=== PATIENT | male | born 1945 | race Caucasian/White ===

== ENCOUNTER 2023-06-21 10:28 | Outpatient (CLI) | payer MEDICARE, SELFPAY ==
--- OUTSIDE RECORDS SUMMARY | 2023-06-21 10:33 | XMS_ITS | Continuity of Care Document ---
Author Name Unknown Organization [facility] Address [address] [place] [id number] Phone Care Team Providers Care Correctional Supervisor Lieutenant Name Role Phone Preethi Boyce MD Unavailable Unavailable Allergies, Adverse Reactions, Alerts Substance Reaction Status Criticality No Known Allergies Active No Inform ation Medications Medication Instructions Dosage Effective Dates (start - stop) Status Comments omeprazole 20 mg capsule,delayed release TAKE ONE CAPSULE BY MOUTH EVERY MORNING 30 MIN BEFORE MEALS - Active Vitamin B-12 1,000 mcg tablet - Active CENTRUM SILVER (unknown strength) Not Available - Active aspirin 81 mg tablet,delayed release take 1 tablet by oral route every day 81 MG - Active alprazolam 0.5 mg tablet take 1 tablet by oral route 3 times every day 0.5 MG - Active simvastatin 40 mg tablet take 1 tablet by oral route every day in the evening 40 MG - Active Tirosint 25 mcg capsule take 1 capsule by oral route every day 25 MCG - Active OMEPRAZOLE DR 20 MG CAPSULE TAKE ONE CAPSULE BY MOUTH EVERY MORNING 30 MIN BEFORE MEALS - No Longer Active Problems Condition Type Effective Dates (start - stop) Clini jeana Status Comments No Known Problems Procedures Procedure Date OFFICE/OUTPATIENT VISIT, EST OFFICE/OUTPATIENT VISIT, EST OFFICE/OUTPATIENT VISIT, EST ANESTH, UPPER GI VISUALIZE TISSUE EXAM BY PATHOLOGIST UPPER GI ENDOSCOPY, BIOPSY OFFICE/OUTPATIENT VISIT, EST ANESTH, LOW INTESTINE SCOPE DIAGNOSTIC COLONOSCOPY OFFICE/OUTPATIENT VISIT, EST ANESTH, LOW INTESTINE SCOPE LESION REMOVAL COLONOSCOPY TISSUE EXAM BY PATHOLOGIST OFFICE/OUTPATIENT VISIT, [facility] Advance Directives Directive Yes / No Effective Date File Name No Information Encounters Encounter Description Practice Location Reason(s) For Visit Diagnoses Date Provider Providers Copied on Encounter OFFICE/OUTPA TIENT VISIT, [facility], [address], [place], [place], [address] [place] [address], tel:[phone] Main Office GERD (chief complaint)H /o colorectal polyp(s) (chief complaint) Gastro-esophage al reflux disease without esophagitisHoar senessPersonal history of colonic polypsCough 9 Albibi Riyad. [address] [place], [place], [facility], . tel:[phone] Referring Provider: Emy Lopez, [address], [place], [place], [facility]. tel:[phone] [facility], [address], [address] [place] [address], tel:[phone] Main Office No Information 9 Albibi Riyad. [address], [facility], . tel:[phone] OFFICE/OUTPA TIENT VISIT, [facility], [address], [place], [address] [place] [address], tel:[phone] Main Office GERD (chief complaint)H /o colorectal polyp(s) (chief complaint) Gastro-esophage al reflux disease without esophagitisPers onal history of colonic polyps 8 Albibi Riyad. [address], [facility], . tel:[phone] Referring Provider: Emy Lopez, [address], [place], [place], [facility]. tel:[phone] OFFICE/OUTPA TIENT VISIT, [facility], [address], [address] [place] [address], tel:[phone] Main Office elevated liver chemistry (chief complaint)H /o colorectal polyp(s) (chief complaint) Other specified abnormal findings of blood chemistryPerson al history of colonic polyps Albpatti Oro. [address] [place], [place], [facility], . tel:[phone] Referring Provider: Emy Lopez, [address], [place], [facility]. tel:[phone] [facility], [address], [address] [place] [address], tel:[phone] [facility] No Information No Information Referring Provider: Preethi Boyce, [address], [facility]. tel:[phone] [facility], [address] [place], [place], [address] [place] [address], tel:[phone] Main Office No Information Carli Oro. [address], [facility], . tel:[phone] Referring Provider: Preethi Boyce, [address] [place], [place], [facility]. tel:[phone] [facility], [address], [address] [place] [address], tel:[phone] [facility] No Information Carli Oro. [address] [place], [facility], . tel:[phone] Referring Provider: Preethi Boyce, [address], [facility]. tel:[phone] OFFICE/OUTPA TIENT VISIT, EST [facility], [address], [id number], tel:[phone] Main Office elevated liver chemistry (chief complaint)G ERD (chief complaint) Gastro-esophage al reflux disease without esophagitisPers onal history of colonic polypsOther specified abnormal findings of blood chemistryHoarse ness Carli Oro. [address], [place], [address], [place]. tel:[phone] Referring Provider: Emy Lopez, [address], [place], [address]. tel:[phone] [facility], [address], [place], [place], [id number], [place] tel:[phone] [facility] No Information 0 6 No Information Referring Provider: Emy Lopez, [address], [place], [address]. tel:[phone] [facility], [address], [place], [place], [id number], [place] tel:[phone] [facility] No Information 0 6 Albibi Riyad. [address], [place], [address], [place]. tel:[phone] Referring Provider: Emy Lopez, [address], [address]. tel:[phone] OFFICE/OUTPA TIENT VISIT, [facility], [address], [place], [place], [id number], [place] tel:[phone] Main Office H/o colorectal polyp(s) (chief complaint) Personal history of colonic polyps Fe-2 6 Albibi Riyad. [address], [place], [address], [place]. tel:[phone] Referring Provider: Emy Lopez, [address] [place], [address]. tel:[phone] [facility], [address], [place], [place], [id number], [place] tel:[phone] [facility] No Information Feb-0 2- 4 No Information Referring Provider: Emy Lopez, [address], [place], [address]. tel:[phone] [facility], [address], [id number], [place] tel:[phone] [facility] No Information Feb-0 2- 4 Carli Cabad. [address], [facility], . tel:[phone] Referring Provider: Emy Lopez, [address] [place], [facility]. tel:[phone] [facility], [address], [address] [place] [address], tel:[phone] Main Office No Information 4 Carli Oro. [address] [place], [place], [facility], . tel:[phone] Referring Provider: Emy Lopez, [address], [place], [facility]. tel:[phone] OFFICE/OUTPA TIENT VISIT, [facility], [address] [place], [place], [address] [place] [address], tel:[phone] Main Office No Information 3 Carli Oro. [address] [place], [place], [facility], . tel:[phone] Referring Provider: Emy Lopez, [address], [place], [facility]. tel:[phone] Family History Family Member Type Diagnosis Age At Onset No Information Payers Payer name Insurance type Covered green party ID Authorbradleya tikarla(s) Medicare [id number] AARP Supplement Plans [id number] Social History Type Description Quantity Date Captured Comments Alcohol Use Details Caffeine Use Details Unknown Tobacco Use Status Never smoked tobacco 2018 Smoking Status Never smoker Sex Male Vital Signs Date / Time: Height Weight BMI Pulse Rate Blood Pressure Temperature Respiratory Rate Body Surface Area Head Circumference Head Circ. Percentile Wt./Zafar. Percentile BMI percentile Pulse Ox Inhaled Ox 4:14 PM 73.00 in 107.501 kg (237.00 lbs) 31.2 7 kg/m eter (2) 52 /min 151/83 mm[Hg] Chief Complaint And Reason For Visit From encounter dated '07/13/2019 15:50'. GERD (chief complaint). Description: The onset of the heartburn was gradual. The severity is mild. The patient reports heartburn. Context: treatment with PPIs. The symptoms are aggravated by spicy foods. There are no associated symptoms. H/o colorectal polyp(s) (chief complaint). Description: The patient presents with H/o colorectal polyp(s) that began gradually. The problem occurs cyclical. He does not complain of any pain. Denies aggravating factors. Denies relieving factors. Additional information: Colon 2017, no new polyps, [id number]. EGD showed ring and esophagitis. Reason For Referral Reason For Referral No Information History Of Present Illness Encounter Date Complaint History Of Prese nt Illness GERD The onset of the heartburn was gradual. The severity is mild. The patient reports heartburn. Context: treatment with PPIs. The symptoms are aggravated by spicy foods. There are no associated symptoms. H/o colorectal polyp(s) The berlin ent presents with H/o colorectal polyp(s) that began gradually. The problem occurs cyclical. He does not complain of any pain. Denies aggravating factors. Denies relieving factors. Additional information: Colon 2017, no new polyps, due 2020. EGD showed ring and esophagitis. H/o colorectal polyp(s) The berlin ent presents with H/o colorectal polyp(s). Additional information: Colon of 2015 with no recurrence of polyps. Due for recheck 2020 ( 5 year). Denies any lower GI sx.. GERD The onset of the heartburn was gradual. The severity is mild. The problem is improving. The patient reports heartburn. It occurs randomly. Denies aggravating factors. Denies relieving factors. There are no associated symptoms. Additional information: US abdomen with uncomplicated gallstones. Pt denies any upper GI sx. EGD done 02/12/17 with gastritis. Bx neg. Using Omeprazole 20mg elevated liver chemi stry (comments) US abdomen with uncomplicated gallstones. Pt denies any upper GI sx. EGD done 02/12/17 with gastritis. Bx neg. Using Omeprazole prn. Full liver work up neg. elevated liver chemistry Onset: 6 months ago. Severity level is mild. Indications for testing include routine lab studies. Additional information: Had mild elevation of transaminases and AP. Statins stopped. No ETOH use. Most recent blood work from January with normalization of liver enzymes. Statins have been restarted.. H/o colorectal polyp(s) The berlin ent presents with H/o colorectal polyp(s) that began gradually. The problem occurs cyclical. He reports that the symptoms are unchanged. Denies aggravating factors. Denies relieving factors. Additional information: Colon of 2015 with no recurrence of polyps. Due for recheck 2020 ( 5 year). Denies any lower GI sx. elevated liver chemistry Indicat ions for testing include routine lab studies. There are no associated symptoms. GERD The onset of the heartburn was gradual. The severity is mild. The problem is resolved. It occurs randomly. The symptoms are aggravated by large meals and spicy foods. Associated symptoms include hoarseness. elevated liver chemi stry (comments) Additonal info: Denies any hx of EtOH abuse. No new medications. PCP has stopped statins therapy at this time. Recent AST 62, ALT 127, alk phos 154, t. bili 0.60. CBC WNL. Denies any abdominal pain, N/V. GERD (comments) Additional info: Rare reflux w/ chronic hoarseness. No prior EGD in the past. Last colon 01/2016 w/ diverticulosis and IH. Hx of TVA in the past. H/o colorectal polyp(s) The berlin ent presents with H/o colorectal polyp(s) that began 2 years ago. He/she reports having 1 stools per day. The stool quality is formed. He does not complain of any pain. Additional information: Had 2 TVA removed from cecum 11/2013. Functional Status Date Functional Assessmen t No Information Instructions Date Instruction Additional Infor mation No Information Assessments Type Assessment Date assessment Gastro-esophageal reflux disease without esophagitis assessment Hoarseness assessment Personal history of colonic poly ps assessment Cough Mental Status Date Cognitive Assessment Orientation - [place] ed to time, place, person, situation. Patient Care Teams Name Effective Dates (start - stop) Status Members No Information
--- NOTE | 2023-06-21 10:45 | CRLHL7_ITS ---
For Patients: As a result of the Century Cures Act, medical imaging exams and procedure reports are released immediately into your electronic medical record. You may view this report before your referring provider. If you have questions, please contact your health care provider. CLINICAL HISTORY: CKD STAGE 3 COMPARISON: none TECHNIQUE: Bonilla scale and color Doppler images were acquired of the kidneys. FINDINGS: Sonographic images reveal a symmetric appearance of the kidneys. There is no evidence of hydronephrosis, mass or calculus. The right kidney measures 11.4cm in length and the left kidney measures 11.9cm in length. The renal cortex appears of normal thickness. Renal cortex measures 1.9 cm on the right and 1.9 cm on the left. Normal color Doppler images of both kidneys. IMPRESSION: Normal renal ultrasound. Dictated by Donavan Delgado MD @ 06/21/2023 11:10:18 AM (Electronically Signed)
== END 2023-06-21 10:29 | disposition home or self-care (01) ==
LOC: US 10:29
PROVIDERS: PCP Family Medicine; Visit Provider Internal Medicine Nephrology
DX: N18.30 Chronic kidney disease, stage 3 unspecified (principal); I10 Essential (primary) hypertension
CPT/HCPCS: 76775; 80069; 82043; 82310; 82570; 82728; 83520; 83540; 83550; 83970; 84156; 84165

== ENCOUNTER 2023-06-21 14:04 | Outpatient (CLI) | payer MEDICARE, SELFPAY | END 2023-06-21 14:05 | disposition home or self-care (01) | LOC: NFLDREF 06-23 11:55 | PROVIDERS: PCP Family Medicine; Referring Provider Family Medicine; Visit Provider Internal Medicine Nephrology | DX: E03.9 Hypothyroidism, unspecified (principal); E78.00 Pure hypercholesterolemia, unspecified; I10 Essential (primary) hypertension; N18.30 Chronic kidney disease, stage 3 unspecified | CPT/HCPCS: 80069; 82043; 82310; 82570; 82728; 83520; 83540; 83550; 83970; 84156; 84165 ==

== ENCOUNTER 2023-12-10 08:25 | Outpatient (CLI) | payer MEDICARE, SELFPAY ==
--- OUTSIDE RECORDS SUMMARY | 2023-12-16 15:49 | XMS_ITS | Clinical Summary ---
Author Name Unknown Organization [facility] Address [place], [place] [address] Care Team Providers Care Electric Meter Tester Name Role Phone Pcp, No Primary Care Provider Unavailabl e Allergies No known active allergies Medications Medication Sig Dispensed Refills Start Date End Date Status ALPRAZolam (XANAX) 1 mg tablet Take 1 mg by mouth 2 times daily. 2 10/27/2016 Active simvastatin (ZOCOR) 40 mg tablet Take 40 mg by mouth once daily. 7 10/24/2016 Active levothyroxine (SYNTHROID) 25 mcg tablet Take 25 mcg by mouth once daily. 12 10/24/2016 Active multivitamin (MVI) tablet Take 1 tablet by mouth once daily. 0 11/09/2016 Active vit B complex-folic acid 0.4 mg tab tablet Take 1 tablet by mouth once daily. 0 11/09/2016 Active aspirin (ECOTRIN) 81 mg enteric coated tablet Take 1 tablet by mouth once daily with a meal. 0 11/09/2016 Active omeprazole (PRILOSEC) 20 mg Delayed-Release capsule TAKE 1 CAPSULE BY ORAL ROUTE EVERY DAY BEFORE A MEAL 8 12/20/2017 Active tiZANidine (ZANAFLEX) 4 mg tabletIndications:Acu te bilateral low back pain without sciatica Take 1 tablet by mouth every 6 hours if needed for Muscle Spasm. 10 tablet 0 02/24/2018 Active Active Problems No known active problems Immunizations Name Administration Dates Next Due Influenza, High-dose Inactivated 09/12/2016 Influenza, Inactivated IIV3 (Age 65+ Years) Preserv Free 12/13/2017 Tdap 01/13/2018 Social History Tobacco Use Types Packs/Day Years Used Date Smoking Tobacco: Never Smokeless Tobacco: Never Tobacco Cessation:Counseling Given: Yes Alcohol Use Standard Drinks/Week Comments Yes 0 (1 standard drink = 0.6 oz pur e alcohol) very little red wine PHQ-2 Answer Date Recorded PHQ-2 Score 0 01/31/2019 Sex and Gender Information Value Date Recorded Sex Assigned at Not on file Gender Identity Not on file Sexual Orientation Not on file Obstetrics History Last Filed Vital Signs Vital Sign Reading Time Taken Comments Blood Pressure 152/84 03/04/2018 11:13 AM CDT Pulse 69 03/04/2018 11:13 AM CDT Temperature 36.8 ??C (98.2 ??F) 03/04/2018 1 1:11 AM CDT Respiratory Rate - - Oxygen Saturation 100% 03/04/2018 11: 13 AM CDT Inhaled Oxygen Concentration - - Weight 98.3 kg (216 lb 12.8 oz) 018 11:11 AM CDT Height 181 cm (5' 11.25) 03/02/2018 4:00 PM CDT Body Mass Index 30.03 03/02/2018 4:00 PM CDT Plan of Treatment Health Maintenance Due Date Last Done Comments COVID-19 vaccine series (#1) 1945 Hepatitis C screening for age 18-79 1963 Zoster (shingles) series for age 50+ (1 of 2) 1995 Pneumococcal series for age 65+ (1 of 1 - PCV) 2010 Depression screening for age 12+ 02/03/2019 02/04/20 18 BMI (ht and wt on same day) for age 18+ 03/02/2019 0 03/02/2018, 11/09/2016 Influenza for age 65+ 07/30/2023 12/13/2017, 016 Tetanus booster 01/13/2028 01/13/2018 Tdap Completed 01/13/2018 Care Teams Electric Meter Tester Relationship Specialty Start Date End Date Pcp, No . PCP - General 03/04/18
--- OUTSIDE RECORDS SUMMARY | 2023-12-16 15:49 | XMS_ITS | Continuity of Care Document ---
Author Name Unknown Organization [facility] Address [address] [place] [id number] Phone Care Team Providers Care Engine Wiper Name Role Phone Preethi Boyce MD Unavailable Unavailable Allergies, Adverse Reactions, Alerts Substance Reaction Status Criticality No Known Allergies Active No Inform ation Medications Medication Instructions Dosage Effective Dates (start - stop) Status Comments omeprazole 20 mg capsule,delayed release TAKE ONE CAPSULE BY MOUTH EVERY MORNING 30 MIN BEFORE MEALS - Active Tirosint 25 mcg capsule take 1 capsule by oral route every day 25 MCG - Active simvastatin 40 mg tablet take 1 tablet by oral route every day in the evening 40 MG - Active alprazolam 0.5 mg tablet take 1 tablet by oral route 3 times every day 0.5 MG - Active aspirin 81 mg tablet,delayed release take 1 tablet by oral route every day 81 MG - Active CENTRUM SILVER (unknown strength) Not Available - Active Vitamin B-12 1,000 mcg tablet - Active OMEPRAZOLE DR 20 MG CAPSULE [...] COLONOSCOPY TISSUE EXAM BY PATHOLOGIST OFFICE/OUTPATIENT VISIT, [facility] Advance Directives Directive Yes / No Effective Date File Name No Information Encounters Encounter Description Practice Location Reason(s) For Visit Diagnoses Date Provider Providers Copied on Encounter OFFICE/OUTPA TIENT VISIT, [facility], [address], [place], [place], [address] [place] [address], tel:[phone] Main Office GERD (chief complaint)H /o colorectal polyp(s) (chief complaint) Gastro-esophage al reflux disease without esophagitisHoar senessPersonal history of colonic polypsCough 9 Albibi Riyad. [address] [place], [place], [facility], . tel:[phone] Referring Provider: Emy Lopez, [address] [place], [place], [facility]. tel:[phone] [facility], [address] [place], [address] [place] [address], tel:[phone] Main Office No Information 9 Albibi Riyad. [address], [facility], . tel:[phone] OFFICE/OUTPA TIENT VISIT, [facility], [address], [place], [address] [place] [address], tel:[phone] Main Office GERD (chief complaint)H /o colorectal polyp(s) (chief complaint) Gastro-esophage al reflux disease without esophagitisPers onal history of colonic polyps 8 Albibi Riyad. [address], [facility], . tel:[phone] Referring Provider: Emy Lopez, [address] [place], [place], [facility]. tel:[phone] OFFICE/OUTPA TIENT VISIT, [facility], [address], [address] [place] [address], tel:[phone] Main Office elevated liver chemistry (chief complaint)H /o colorectal polyp(s) (chief complaint) Other specified abnormal findings of blood chemistryPerson al history of colonic polyps Albpatti Oro. [address] [place], [facility], . tel:[phone] Referring Provider: Emy Lopez, [address], [place], [facility]. tel:[phone] [facility], [address], [address] [place] [address], tel:[phone] [facility] No Information No Information Referring Provider: Preethi Boyce, [address], [facility]. tel:[phone] [facility], [address] [place], [place], [address] [place] [address], tel:[phone] Main Office No Information Carli Oro. [address], [facility], . tel:[phone] Referring Provider: Preethi Boyce, [address] [place], [facility]. tel:[phone] [facility], [address], [address] [place] [address], tel:[phone] [facility] No Information Carli Oro. [address] [place], [facility], . tel:[phone] Referring Provider: Preethi Boyce, [address], [facility]. tel:[phone] OFFICE/OUTPA TIENT VISIT, EST [facility], [address], [id number], tel:[phone] Main Office elevated liver chemistry (chief complaint)G ERD (chief complaint) Gastro-esophage al reflux disease without esophagitisPers onal history of colonic polypsOther specified abnormal findings of blood chemistryHoarse ness Carli Oro. [address], [place], [address], [place]. tel:[phone] Referring Provider: Emy Lopez, [address], [place], [address]. tel:[phone] [facility], [address], [place], [place], [id number], [place] tel:[phone] [facility] No Information 0 6 No Information Referring Provider: Emy Lopez, [address] [place], [place], [address]. tel:[phone] [facility], [address], [place], [place], [id number], [place] tel:[phone] [facility] No Information 0 6 Albibi Riyad. [address], [place], [address], [place]. tel:[phone] Referring Provider: Emy Lopez, [address], [address]. tel:[phone] OFFICE/OUTPA TIENT VISIT, [facility], [address], [place], [place], [id number], [place] tel:[phone] Main Office H/o colorectal polyp(s) (chief complaint) Personal history of colonic polyps Fe-2 6 Albibi Riyad. [address], [place], [address], [place]. tel:[phone] Referring Provider: Emy Lopez, [address] [place], [address]. tel:[phone] [facility], [address], [place], [place], [id number], [place] tel:[phone] [facility] No Information Feb-0 2- 4 No Information Referring Provider: Emy Lopez, [address] [place], [place], [address]. tel:[phone] [facility], [address], [id number], [place] tel:[phone] [facility] No Information Feb-0 2- 4 Carli Cabad. [address], [facility], . tel:[phone] Referring Provider: Emy Lopez, [address] [place], [facility]. tel:[phone] [facility], [address], [address] [place] [address], tel:[phone] Main Office No Information 4 Carli Oro. [address] [place], [facility], . tel:[phone] Referring Provider: Emy Lopez, [address] [place], [place], [facility]. tel:[phone] OFFICE/OUTPA TIENT VISIT, [facility], [address] [place], [place], [address] [place] [address], tel:[phone] Main Office No Information 3 Carli Oro. [address] [place], [facility], . tel:[phone] Referring Provider: Emy Lopez, [address], [place], [facility]. tel:[phone] Family History Family Member Type Diagnosis Age At Onset No Information Payers Payer name Insurance type Covered republican ID Authorbradleya tikarla(s) Medicare [id number] AARP Supplement Plans [id number] Social History Type Description Quantity Date Captured [...] Additional information: Colon 2017, no new polyps, [id number]. EGD showed ring and esophagitis. Reason For [...] Mental Status Date Cognitive Assessment Orientation - [place] ed to time, place, person, situation. Patient Care Teams Name Effective Dates (start - stop) Status Members No Information
== END 2023-12-10 08:26 | disposition home or self-care (01) ==
LOC: NFLDREF 12-16 15:43
PROVIDERS: PCP Family Medicine; Referring Provider Family Medicine; Visit Provider Internal Medicine Nephrology
DX: I10 Essential (primary) hypertension (principal); N18.30 Chronic kidney disease, stage 3 unspecified
CPT/HCPCS: 80069; 82043; 82570

== ENCOUNTER 2024-04-17 06:17 | Outpatient (CLI) | payer MEDICARE, SELFPAY ==
--- OUTSIDE RECORDS SUMMARY | 2024-04-17 06:19 | XMS_ITS | Continuity of Care Document ---
Author Name Unknown Organization [facility] Address [address] [place] [phone] Phone Care Team Providers Care Antique Jewelry Repairer Name Role Phone Preethi Boyce MD Unavailable [...] COLONOSCOPY TISSUE EXAM BY PATHOLOGIST OFFICE/OUTPATIENT VISIT, [facility] Advance Directives Directive Yes / No Effective Date File Name No Information Encounters Encounter Description Practice Location Reason(s) For Visit Diagnoses Date Provider Providers Copied on Encounter OFFICE/OUTPA TIENT VISIT, [facility], [address], [place], [place], [address] [place] [address], tel:[phone] Main Office GERD (chief complaint)H /o colorectal polyp(s) (chief complaint) Gastro-esophage al reflux disease without esophagitisHoar senessPersonal history of colonic polypsCough 9 Albibi Riyad. [address] [place], [place], [facility], . tel:[phone] Referring Provider: Emy Lopez, [address] [place], [place], [facility]. tel:[phone] [facility], [address], [address] [place] [address], tel:[phone] Main Office No Information 9 Albibi Riyad. [address], [facility], . tel:[phone] OFFICE/OUTPA TIENT VISIT, [facility], [address], [place], [address] [place] [address], tel:[phone] Main Office GERD (chief complaint)H /o colorectal polyp(s) (chief complaint) Gastro-esophage al reflux disease without esophagitisPers onal history of colonic polyps 8 Albibi Riyad. [address], [facility], . tel:[phone] Referring Provider: Emy Lopez, [address] [place], [place], [facility]. tel:[phone] OFFICE/OUTPA TIENT VISIT, [facility], [address], [address] [place] [address], tel:[phone] Main Office elevated liver chemistry (chief complaint)H /o colorectal polyp(s) (chief complaint) Other specified abnormal findings of blood chemistryPerson al history of colonic polyps Albpatti Oro. [address] [place], [facility], . tel:[phone] Referring Provider: Emy Lopez, [address], [place], [facility]. tel:[phone] [facility], [address], [address] [place] [address], tel:[phone] [facility] No Information No Information Referring Provider: Preethi Boyce, [address], [facility]. tel:[phone] [facility], [address] [place], [place], [address] [place] [address], tel:[phone] Main Office No Information Carli Oro. [address], [facility], . tel:[phone] Referring Provider: Preethi Boyce, [address] [place], [facility]. tel:[phone] [facility], [address], [address] [place] [address], tel:[phone] [facility] No Information Carli Oro. [address] [place], [facility], . tel:[phone] Referring Provider: Preethi Boyce, [address], [facility]. tel:[phone] OFFICE/OUTPA TIENT VISIT, EST [facility], [address], [id number], tel:[phone] Main Office elevated liver chemistry (chief complaint)G ERD (chief complaint) Gastro-esophage al reflux disease without esophagitisPers onal history of colonic polypsOther specified abnormal findings of blood chemistryHoarse ness Carli Oro. [address], [place], [address], [place]. tel:[phone] Referring Provider: Emy Lopez, [address], [place], [address]. tel:[phone] [facility], [address], [place], [place], [id number], [place] tel:[phone] [facility] No Information 0 6 No Information Referring Provider: Emy Lopez, [address] [place], [place], [address]. tel:[phone] [facility], [address], [place], [place], [id number], [place] tel:[phone] [facility] No Information 0 6 Albibi Riyad. [address], [place], [address], [place]. tel:[phone] Referring Provider: Emy Lopez, [address], [address]. tel:[phone] OFFICE/OUTPA TIENT VISIT, [facility], [address], [place], [place], [id number], [place] tel:[phone] Main Office H/o colorectal polyp(s) (chief complaint) Personal history of colonic polyps Fe-2 6 Albibi Riyad. [address], [place], [address], [place]. tel:[phone] Referring Provider: Emy Lopez, [address] [place], [address]. tel:[phone] [facility], [address], [place], [place], [id number], [place] tel:[phone] [facility] No Information Feb-0 2- 4 No Information Referring Provider: Emy Lopez, [address] [place], [place], [address]. tel:[phone] [facility], [address], [id number], [place] tel:[phone] [facility] No Information Feb-0 2- 4 Carli Cabad. [address], [facility], . tel:[phone] Referring Provider: Emy Lopez, [address] [place], [place], [facility]. tel:[phone] [facility], [address], [address] [place] [address], tel:[phone] Main Office No Information 4 Carli Oro. [address] [place], [place], [facility], . tel:[phone] Referring Provider: Emy Lopez, [address] [place], [place], [facility]. tel:[phone] OFFICE/OUTPA TIENT VISIT, [facility], [address] [place], [place], [address] [place] [address], tel:[phone] Main Office No Information 3 Carli Oro. [address] [place], [facility], . tel:[phone] Referring Provider: Emy Lopez, [address] [place], [facility]. tel:[phone] Family History Family Member Type Diagnosis Age At Onset No Information Payers Payer name Insurance type Covered alliance party ID Authorbradleya tikarla(s) Medicare [id number] AARP Supplement Plans [id number] Social History Type Description Quantity Date Captured [...] Additional information: Colon 2017, no new polyps, [id number]. EGD showed ring and esophagitis. Reason For [...] Mental Status Date Cognitive Assessment Orientation - [place] ed to time, place, person, situation. Patient Care Teams Name Effective Dates (start - stop) Status Members No Information
--- OUTSIDE RECORDS SUMMARY | 2024-04-17 06:19 | XMS_ITS | Clinical Summary ---
Author Name Unknown Organization [employer] [facility] Address [place], [place] [address] Care Team Providers Care Brake Engineer Name Role Phone Pcp, No Primary Care [...] if needed for Muscle Spasm. 10 tablet 02/24/2018 Active Active Problems No known active [...] Health Maintenance Due Date Last Done Comments Hepatitis C screening for age 18-79 1963 Zoster (shingles) series for age 50+ (1 of 2) 1995 Pneumococcal series for age 65+ (1 of 1 - PCV) 2010 Depression screening for age 12+ 02/03/2019 02/04/20 18 BMI (ht and wt on same day) for age 18+ 03/02/2019 0 03/02/2018, 11/09/2016 COVID-19 vaccine series ( season) 2023 Influenza for age 65+ 07/30/2024 12/13/2017, 016 Tetanus booster 01/13/2028 01/13/2018 Tdap Completed 01/13/2018 Care Teams Brake Engineer Relationship Specialty Start Date End Date Pcp, No . PCP - General 03/04/18
--- NOTE | 2024-04-17 08:54 | P.ANES_ITS ---
Anesthesia Charges Start Date/Time Anesthesia Start Date: 04/17/24 Anesthesia Start Time: 07:28 Stop Date/Time Anesthesia Stop Date: 04/17/24 Anesthesia Stop Time: 08:11 Summary Extremes of Age - Over 70 or under 1: [employer]
--- NOTE | 2024-04-17 09:12 | W.ANESCHARGE ---
Anesthesia Charges Start Date/Time Anesthesia Start Date: 04/17/24 Anesthesia Start Time: 07:28 Stop Date/Time Anesthesia Stop Date: 04/17/24 Anesthesia Stop Time: 08:11 Summary Extremes of Age - Over 70 or under 1: MDA
== END 2024-04-17 06:18 | disposition home or self-care (01) ==
LOC: OP CLINIC 06:18
PROVIDERS: PCP Family Medicine; Visit Provider Surgery
DX: Z12.11 Encounter for screening for malignant neoplasm of colon (principal); K63.5 Polyp of colon; Z86.010 Personal history of colon polyps
CPT/HCPCS: 00811; 45380; 45385; 88305; 99100; J2704

== ENCOUNTER 2024-05-18 09:15 | Outpatient (CLI) | payer MEDICARE, SELFPAY ==
--- OUTSIDE RECORDS SUMMARY | 2024-05-22 18:09 | XMS_ITS | Continuity of Care Document ---
Author Organization [facility] Address [address] [place] [phone] Phone Care Team Providers Care [employer] Finisher Name Role Phone Preethi Boyce MD Unavailable [...] TISSUE EXAM BY PATHOLOGIST OFFICE/OUTPATIENT VISIT, [facility] Advance Directives Directive Yes / No Effective Date File Name No Information Encounters Encounter Description Practice Location Reason(s) For Visit Diagnoses Date Provider Providers Copied on Encounter OFFICE/OUTPA TIENT VISIT, [facility] [[email or web address], [address], [place], [place], [address] [place] [address], tel:[phone] Main Office GERD (chief complaint)H /o colorectal polyp(s) (chief complaint) Gastro-esophage al reflux disease without esophagitisHoar senessPersonal history of colonic polypsCough 9 Albibi Riyad. [address], [facility], . tel:[phone] Referring Provider: Emy Lopez, [address], [place], [place], [facility]. tel:[phone] [facility], [address] [place], [place], [address] [place] [address], tel:[phone] Main Office No Information 9 Albibi Riyad. [address], [place], [place], [facility], . tel:[phone] OFFICE/OUTPA TIENT VISIT, [facility], [address], [place], [place], [address] [place] [address], tel:[phone] Main Office GERD (chief complaint)H /o colorectal polyp(s) (chief complaint) Gastro-esophage al reflux disease without esophagitisPers onal history of colonic polyps 8 Albibi Riyad. [address], [facility], . tel:[phone] Referring Provider: Emy Lopez, [address], [place], [place], [facility]. tel:[phone] OFFICE/OUTPA TIENT VISIT, [facility], [address] [place], [address] [place] [address], tel:[phone] Main Office elevated liver chemistry (chief complaint)H /o colorectal polyp(s) (chief complaint) Other specified abnormal findings of blood chemistryPerson al history of colonic polyps Albibi Gertrudisd. [address], [facility], . tel:[phone] Referring Provider: Emy Lopez, [address], [place], [place], [facility]. tel:[phone] [facility], [address] [place], [address] [place] [address], tel:[phone] [facility] No Information No Information Referring Provider: Preethi Boyce, [address], [facility]. tel:[phone] [facility], [address] [place], [address] [place] [address], tel:[phone] Main Office No Information Carli Oro. [address], [facility], . tel:[phone] Referring Provider: Preethi Boyce, [address] [place], [place], [facility]. tel:[phone] [facility], [address], [address] [place] [address], tel:[phone] [facility] No Information Carli Oro. [address], [facility], . tel:[phone] Referring Provider: Preethi Boyce, [address] [place], [place], [facility]. tel:[phone] OFFICE/OUTPA TIENT VISIT, [facility] [[email or web address]] [facility], [address] [place], [address] [place] [address], tel:[phone] Main Office elevated liver chemistry (chief complaint)G ERD (chief complaint) Gastro-esophage al reflux disease without esophagitisPers onal history of colonic polypsOther specified abnormal findings of blood chemistryHoarse ness Kaileeibi Dorotheayad. [address], [place], [address], [place]. tel:[phone] Referring Provider: Emy Lopez, [address], [place], [address]. tel:[phone] [facility], [address], [place], [place], [id number], [place] tel:[phone] [facility] No Information Jan- 0 6 No Information Referring Provider: Emy Lopez, [address], [place], [address]. tel:[phone] [facility], [address], [place], [place], [id number], [place] tel:[phone] [facility] No Information Jan- 0- 6 Albibi Riyad. [address], [place], [address], [place]. tel:[phone] Referring Provider: Emy Lopez, [address], [place], [address]. tel:[phone] OFFICE/OUTPA TIENT VISIT, [facility] [[email or web address]] [facility], [address], [place], [place], [id number], [place] tel:[phone] Main Office H/o colorectal polyp(s) (chief complaint) Personal history of colonic polyps Fe-2 - 6 Albibi Riyad. [address], [place], [address], [place]. tel:[phone] Referring Provider: Emy Lopez, [address] [place], [address]. tel:[phone] [facility], [address], [place], [place], [id number], [place] tel:[phone] [facility] No Information Feb-0 2- 4 No Information Referring Provider: Emy Lopez, [address], [place], [address]. tel:[phone] [facility], [address], [place], [place], [id number], [place] tel:[phone] [facility] No Information Feb-0 2- 4 Albibi Riyad. [address], [facility], . tel:[phone] Referring Provider: Emy Lopez, [address] [place], [place], [facility]. tel:[phone] [facility], [address], [address] [place] [address], tel:[phone] Main Office No Information 4 Carli Piedrayad. [address], [facility], . tel:[phone] Referring Provider: Emy Lopez, [address], [place], [facility]. tel:[phone] OFFICE/OUTPA TIENT VISIT, [facility], [address] [place], [place], [address] [place] [address], tel:[phone] Main Office No Information 3 Carli Piedrayad. [address] [place], [place], [facility], . tel:[phone] Referring Provider: Emy Lopez, [address], [facility]. tel:[phone] Family History Family Member Type Diagnosis Age At Onset No Information Payers Payer name Insurance type Covered green party ID Authorbradleya apple(s) Medicare [id number] AARP Supplement Plans [id number] Social History Type Description Quantity Date Captured [...] Additional information: Colon 2017, no new polyps, [id number]. EGD showed ring and esophagitis. Reason For [...] Mental Status Date Cognitive Assessment Orientation - [place] ed to time, place, person, situation. Patient Care Teams Name Effective Dates (start - stop) Status Members No Information
--- OUTSIDE RECORDS SUMMARY | 2024-05-22 18:09 | XMS_ITS | Clinical Summary ---
Author Organization [facility] Address [place], [place] [address] Care Team Providers Care Telephone Instrument Supervisor Name Role Phone Pcp, No Primary Care [...] Active Active Problems No known active problems Encounters Date Type Department Care Team Description 04/17/2024 Lab Requisition [facility] [phone] Alyce Montenegro MD from Last 3 Months Immunizations Name Administration Dates Next Due Influenza, [...] Tetanus booster 01/13/2028 01/13/2018 Tdap Completed 01/13/2018 Procedures Procedure Name Priority Date/Time Associated Diagnosis Comments LAB TRACKING EVENT Routine 04/17/2024 7: 40 AM CDT PATH TISSUE EXAM Routine 04/17/2024 7:40 AM CDT from Last 3 Months Results * LAB TRACKING EVENT (04/17/2024 7:40 AM CDT) Other (Other) Client Collect / Unknown 04/17/2024 7:40 AM CDT 04/17/2024 9:13 PM CDT Alyce Montenegro MD LAB BILL ONLY [facility] [address] [place] [address], [place] * PATH TISSUE EXAM (04/17/2024 7:40 AM CDT) Case Report Pathology Report ?Case: [id number] ? Authorizing Provider: ??Alyce Montenegro MD ??Collected: ? 04/17/2024 0740 ? Ordering Location: ? [facility] ?Received: ?04/18/2024 0750 ? Pathologist: ? Vlad Quigley, ? MD ? Specimens: ?? A) - Hepatic Flexure Biopsy ? B) - Descending Colon Biopsy ? 04/19/2024 6:10 PM CDT [facility] Final Diagnosis A) COLON, HEPATIC FLEXURE, BIOPSY: 1. Normal colonic mucosa (clinically, 1 polyp) 2. Negative for serrated change, dysplasia, and malignancy B) COLON, DESCENDING, POLYPECTOMY: 1. Inflammatory polyp 2. Negative for dysplasia 04/19/2024 6:10 PM CDT [facility] Clinical Information Mr. Khan is a 78 y.o. undergoing high risk colon cancer surveillance due to a personal history of colon polyps. 04/19/2024 6:10 PM CDT [facility] Gross Description A) Received in formalin is a penaloza mucosal fragment measuring 2 mm in greatest dimension, which is entirely submitted in one cassette. It is labeled with the patient's name and designated hepatic flexure biopsy. B) Received in formalin is a penaloza mucosal fragment measuring 6 mm in greatest dimension, which is entirely submitted in one cassette. It is labeled with the patient's name and designated descending colon biopsy. Ariel Fuentes 04/18/2024 10:04 AM 04/19/2024 6:10 PM CDT [facility] Microscopic Description The final diagnosis is based on microscopic examination of appropriate sections of all specimens. 04/19/2024 6:10 PM CDT [facility] Additional Information Interpreted at [facility] Central Laboratory - [address] [facility] [address], [place] [address] 04/19/2024 6:10 PM T [facility] Other (Hepatic Flexure Biopsy) 04/17/2024 7:40 AM CDT 04/18/2024 7:50 AM CDT Specimen (specimen) (Descending Colon Biopsy) 04/17/2024 7:40 AM CDT 04/18/2024 7:50 AM CDT Alyce Montenegro MD PATHOLOGY/CYTOLO GY Performing Organization Address City/State/[facility] Co de Phone Number [facility] [address] [place] [address], from Last 3 Months Care Teams Telephone Instrument Supervisor Relationship Specialty Start Date End Date Pcp, No . PCP - General 03/04/18
== END 2024-05-18 09:16 | disposition home or self-care (01) ==
LOC: NFLDREF 05-22 18:07
PROVIDERS: PCP Family Medicine; Referring Provider Family Medicine; Visit Provider Family Medicine
DX: E78.00 Pure hypercholesterolemia, unspecified (principal); N40.0 Benign prostatic hyperplasia without lower urinary tract symptoms; E03.9 Hypothyroidism, unspecified
CPT/HCPCS: 80053; 80061; 84443; G0103

== ENCOUNTER 2024-12-07 13:52 | Outpatient (CLI) | payer MEDICARE, SELFPAY | END 2024-12-07 13:53 | disposition home or self-care (01) | LOC: NFLDREF 12-18 14:38 | PROVIDERS: PCP Family Medicine; Referring Provider Family Medicine; Visit Provider Internal Medicine Nephrology | DX: N18.30 Chronic kidney disease, stage 3 unspecified (principal); I10 Essential (primary) hypertension | CPT/HCPCS: 80069; 82043; 82570 ==

== ENCOUNTER 2025-05-14 09:55 | Outpatient (CLI) | payer MEDICARE, SELFPAY | END 2025-05-14 09:56 | disposition home or self-care (01) | LOC: NFLDREF 05-18 08:42 | PROVIDERS: PCP Family Medicine; Referring Provider Family Medicine; Visit Provider Family Medicine | DX: E78.00 Pure hypercholesterolemia, unspecified (principal); E03.9 Hypothyroidism, unspecified; I10 Essential (primary) hypertension | CPT/HCPCS: 80053; 80061; 84443 ==